=== PATIENT | female | born 1960 | race Caucasian/White ===

== ENCOUNTER 2019-07-11 10:00 | Outpatient (RCR) | payer OTHER, SELFPAY ==
[2019-04-20 12:32] VITALS: BP_SYST 80
--- NOTE | 2019-04-20 13:34 | PTOPEVAL ---
PHYSICAL THERAPY EVALUATION AND PLAN OF CARE Thank you for referring this patient to [facility]. Essence will participate in physical therapy for rehabilitation of right shoulder following rotator cuff repair 1-2x/week for 5 weeks until 6weeks post-op. Please review, sign, date and return this plan of care KAYDEN. I agree with and certify that the following plan of care is medically necessary. Referring Physician Date Attending Provider: Dr.Bruce Ollie MD Evaluation Diagnosis right rotator cuff repair Onset 04/14/2019 Subjective Information Essence is here today 1 week s/p Query Text:As Reported By Patient/ right rotator cuff repair. He Family repaired a full thickness tear and removed 2 bone spurs. Patient also reports he snipped the biceps tendon. Pain has been severe, but is easing. Pain Assessment Pain Scale Pain Scale Used Numeric (1 - 10) Self Report Pain Assessment Bilateral Shoulder(s) Reported Pain Level 4 Current Pain Intensity 4 Lowest Pain Intensity 2 Greatest Pain Intensity 9 Pain Score Pain Score 4: Self Report Scapular/ Shoulder Range of Motion Right Shoulder Flexion - Passive 105 Shoulder Abduction - Passive 80 Shoulder Lateral Rotation - Passive 45 General Upper Extremity Strength Reason Not Measured Surgery Precautions Posture Sitting Position Posture Evaluation View Anterior Scapula Posture (R) Protracted,(R) Tipped Arm Posture (R) Internally Rotated Clinical Summary Essence is 1 week s/p right rotator cuff repair. Incision site appears clean and dry without drainage or discoloring. She is experiencing normal levels of pain and discomfort that are gradually easing with time and medication. Essence is currently on precautions for PROM only of right shoulder both in therapy and at home. She was educated to use her sling at all times unless sitting and resting. If she happens to be standing without her sling, she is to let arm rest down straight. Essence has less than functional AROM and strength at this time. She
--- NOTE | 2019-05-01 17:40 | PCPTNOTE ---
Patient called & cancelled scheduled appointment this date due to car issues.
[2019-05-24 14:03] VITALS: BP_SYST 145
--- NOTE | 2019-05-24 14:47 | PTOPEVAL ---
PHYSICAL THERAPY PLAN OF CARE UPDATE AND PROGRESS REPORT Thank you for referring this patient to [facility]. Essence will be seen in physical therapy 1-2x/week for 6 weeks. Please review, sign, date and return this plan of care KAYDEN. I agree with and certify that the following plan of care is medically necessary. Referring Physician Date Re-evaluation Evaluation Information Problem Diagnosis right rotator cuff repair Onset 04/14/2019 Subjective Information Essence is here today 6 week s/p Query Text:As Reported By Patient/ right rotator cuff repair. He Family repaired a full thickness tear and removed 2 bone spurs. Patient also reports he snipped the biceps tendon. Pain has been severe, but is easing. She has participated in 6 weeks of physical therapy with PROM to right shoulder. She feels good but with described achiness and soreness in the biceps. Pain Assessment Self Report Pain Assessment Right Shoulder(s) Reported Pain Level 2 Interventions Used By Clinicians Joint Mobilization, PROM, stretching Pain Score Pain Score 2,2: Self Report Additional Pain Score Comments just really achey and tight feeling today Scapular/ Shoulder Range of Motion Right Shoulder Flexion - Passive 150 Shoulder Abduction - Passive 145 Shoulder Medial Rotation - Passive 65 Shoulder Lateral Rotation - Passive 80 General Upper Extremity Strength Reason Not Measured Surgery Precautions Gross Upper Extremity Strength Comments initiating A/A with cane and pulleys and gentle isometric exericses Palpation good tissue integrity throughou periscapular region; tender to palpation over biceps Clinical Summary Essence is 6 weeks s/p right rotator cuff repair. She is recovering from surgical interventino well with good progress in PROM and good initial A/A ROM in flexion, external rotation, and internal rotation. At this time, with physician consent, she is ready to progress to next phase of gentle strengthening and A/AROM and
--- NOTE | 2019-06-28 11:43 | PCPTNOTE ---
Patient called & cancelled scheduled appointment this date due to not feeling well and doesn't want to risk spreading anything if she has something.
--- NOTE | 2019-07-11 14:35 | PTOPEVAL ---
PHYSICAL THERAPY DISCHARGE Thank you for referring Essence Vidales to [facility]. Please review, sign, date and return this plan of care KAYDEN. I agree with and certify that the following plan of care is medically necessary. Referring Physician Date Discharge Diagnosis right rotator cuff repair Onset 04/14/2019 Subjective Information Essence started back to work Query Text:As Reported By Patient/ several weeks ago 1 day/week. Family Notes that the arm was tired and sore, but not painful. Still using ice if very sore but no pain medication expect Tylenol as needed. She is doing light yard work (picking up sticks). Pain Assessment Timing of Pain Assessment Timing of Pain Assessment Pre-Treatment Pain Scale Pain Scale Used Numeric (1 - 10) Self Report Pain Assessment Right Shoulder(s) Reported Pain Level 1 Pain Description Soreness Pain Score Pain Score 1: Self Report Upper Extremity Range of Motion Scapular/ Shoulder Range of Motion Right Shoulder Flexion - Active 150 Shoulder Abduction - Active 145 Shoulder Medial Rotation - Active T10 Query Text:Reach Behind the Back Shoulder Lateral Rotation - Active 80 Upper Extremity Muscle Strength Testing Scapular/Shoulder Right Shoulder Flexion Strength 3+ Fair + Shoulder Abduction Strength 4- Good - Shoulder Medial Rotation Strength 4+ Good + Shoulder Lateral Rotation Strength 4+ Good + PT Clinical Summary Essence is a 59 yo female 12 weeks s/p right rotator cuff repair. She has returned to work with a 5lb lifting restriction. She is working one day a week at this time. Essence's strength is progressing and her ROM is symmetrical with contralateral side. She is eager to continue home exercise program and due to co-pay and her return to work she would like to use her HEP to assist in building her strength. She will be discharged from PT at this time.
== END 2019-07-12 09:18 | disposition home or self-care (01) ==
LOC: ANHPT 10:00
PROVIDERS: PCP Family Medicine
DX: Z48.89 Encounter for other specified surgical aftercare (principal); M25.511 Pain in right shoulder
CPT/HCPCS: 97110; 97140; 97161

== ENCOUNTER 2019-11-29 15:41 | Outpatient (CLI) | payer OTHER, SELFPAY ==
--- NOTE | ~2019-11-29 | MM_ITS ---
EXAMINATION: MM screening mary jane BI w bart HISTORY: Screening TECHNIQUE: Craniocaudal and mediolateral oblique 3-D tomosynthesis images were obtained and synthetic 2-D images were generated. CAD analysis was submitted and interpreted. COMPARISON: Comparison to multiple prior studies sequentially, with oldest reviewed study dated 11/23. BREAST PARENCHYMAL COMPOSITION: There are scattered areas of fibroglandular density. FINDINGS: There is no evidence of suspicious mass, calcification, or architectural distortion to sugg est malignancy in either breast. There has been no suspicious interval change. IMPRESSION: 1. No mammographic evidence of malignancy. 2. Recommend routine screening mammography in one year. BI-RADS Category 1: Negative Reviewed, dictated and finalized at location A.
== END 2019-11-29 15:42 | disposition home or self-care (01) ==
LOC: ANHIMG 15:44
PROVIDERS: PCP Family Medicine; Visit Provider Family Medicine
DX: Z12.31 Encounter for screening mammogram for malignant neoplasm of breast (principal)
CPT/HCPCS: 77063; 77067

== ENCOUNTER 2021-02-24 08:29 | Outpatient (RCR) | payer BC, SELFPAY ==
[2021-02-24 08:35] VITALS: BP_SYST 170
--- NOTE | 2021-02-24 09:42 | PTOPEVAL ---
Thank you for referring Essence Vidales to [facility].? The patient is scheduled to be seen for therapy? 2 x/week for 6 weeks. Please review, sign, date and return this plan of care KAYDEN. I agree with and certify that the following plan of care is medically necessary. Referring Physician Date Referring Provider: Ramiro Levin MD Diagnosis right shoulder/elbow pain Onset 6 months Additional Evaluation Detail She had previous surgery for RTC repair 04/17. The MD was unable to repair the bicep due to amount of time since injury. Subjective Information Increased bicep pain in the Query Text:As Reported By Patient/ past 6 months. She c/o loss of Family strength of the UE. Reports increased pain with repeated lifting at work. She has increased pain with lifting and reaching motions overhead. Increased pain with sleeping on right side. She is performing HEP at home for stretching and occasional strengthening. Pain Assessment Right Arm(s) Reported Pain Level 2 Pain Description Aching,With Movement Pain Frequency Chronic,Continuous Lowest Pain Intensity 2 Greatest Pain Intensity 8 Pain Aggravating Factors Exercise/Activity,Lifting Upper Extremity Range of Motion General Upper Extremity Range of Motion Gross Upper Extremity Range of Motion right elbow ROM: WNL Comments Scapular/ Shoulder Range of Motion Right Shoulder Flexion - Active 145 Shoulder Flexion - Passive 165 Shoulder Extension - Active 50 Shoulder Abduction - Active 125 Shoulder Abduction - Passive 170 Shoulder Medial Rotation - Active 45 Shoulder Medial Rotation - Passive 60 Shoulder Medial Rotation - Active T7:Reach Behind the Back Shoulder Lateral Rotation - Active 90 Shoulder Lateral Rotation - Active C6:Reach Behind the Head Scapular/Shoulder Range of Motion Muscle Length Restriction,Pain, Limitations Soft Tissue Restriction Upper Extremity Muscle Strength Testing General Upper Extremity Strength Gross Upper Extremity Strength Comments left middle trap: 3-/5, lower trap: 2/5 technical sales representatives dynamometer 2nd level right: 55, 45, 50= avg left: 70, 56, 60= avg Scapular/Shoulder Right Scapular Retraction - Middle Trapezius 3- Fair - Scapular Retraction - Lower Trapezius 2 Poor Shoulder Flexion Strength 3 F
--- NOTE | 2021-03-25 11:50 | PCPTNOTE ---
Admitting Provider: Attending Provider: Dr. Ramiro Levin MD Patient:Essence Vidales Date of :1960 Physical Therapy Discharge Summary Patient has not returned for any further treatments since 02/24/2021, therefore she will be discharged at this time. Patient?s initial visit was on 02/24/2021 08:30 and she had a total of 1 visits. The goals have been not met due to limited visits attended. . Thank you for referring this patient to [facility]. Please review, sign, date and return this discharge summary KAYDEN. I have been updated about the patient's current status and I agree with discharge from the above service at this time. Referring Physician Date
== END 2021-03-25 15:48 | disposition home or self-care (01) ==
LOC: ANHPT 08:29
PROVIDERS: PCP Family Medicine
DX: M25.511 Pain in right shoulder (principal); M25.521 Pain in right elbow
CPT/HCPCS: 97110; 97162

== ENCOUNTER 2021-03-18 14:39 | Outpatient (CLI) | payer BC, SELFPAY ==
--- NOTE | ~2021-03-18 | MM_ITS ---
EXAMINATION: MM screening mary jane BI w bart HISTORY: Screening mammogram TECHNIQUE: Craniocaudal and mediolateral oblique 3-D tomosynthesis images were obtained and synthetic 2-D images were generated. CAD analysis was submitted and interpreted. COMPARISON: 11/29/2019, 11/23/2018 bilateral screening mammogram examinations BREAST PARENCHYMAL COMPOSITION: There are scattered areas of fibroglandular density. FINDINGS: There is no evidence of suspicious mass, calcification, or architectural distortion to sugg est malignancy in either breast. There has been no suspicious interval change. IMPRESSION: 1. No mammographic evidence of malignancy. 2. Recommend routine screening mammography in one year. BI-RADS Category 1: Negative Reviewed, dictated and finalized at location B. ERY CLERK
--- NOTE | ~2021-03-18 | DEXA_ITS ---
Bone Density Report Name: NICOLE TOURE Age: 61 Sex: Female Ethnicity: White Date of : 1960 Indication: postmenopausal; height loss; prior fracture; Referring Provider: ROD MENCHACA Study: Bone densitometry was performed. Exam Date: March 18, 2021 Accession number: [id number] Bone Density: Region BMD T-score Z-score Classification AP Spine (L1-L4) 1.066 0.2 1.8 Normal Femoral Neck (Left) 0.828 -0.2 1.2 Normal Total Hip (Left) 1.026 0.7 1.8 Normal Total Hip Bilateral Avg 1.047 0.8 1.9 Normal Femoral Neck (Right) 0.878 0.3 1.7 Normal Total Hip (Right) 1.066 1.0 2.1 Normal World Health Organization criteria for BMD impression classify patients as: Normal (T-score at or above -1.0), Osteopenia (T-score between -1.0 and -2.5), or Osteoporosis (T-score at or below -2.5). 10-year Fracture Risk: FRAX not reported because: All T-scores for Spine Total, Hip Total, Femoral Neck at or above -1.0 Clinical Information Provided by Patient: Has had a low trauma fracture Has used the following medications: Vitamin D, Calcium Patient maximum height was 64 Menopause Age: 48 No regular weight bearing exercise Drinks caffeinated beverages Onset of menses at age 12 Number of children 0 Impression: The patient has normal bone mass. The patient has risk factors, including: previous fracture. Discussion: BONE DENSITY IS ABOVE THE MINIMUM DESIRABLE LEVEL AT ALL SKELETAL SITES TESTED. This patient?s bone mineral density is above the minimum desirable level (T-score -1.0 or better) at all sites measured. The patient should follow a healthful lifestyle (good nutrition with adequate calcium and vitamin D, and appropriate weight-bearing exercise). Follow-Up: Consider repeating this study in 5 years or sooner if there is some new clinical indication. Reported by: [facility] on 03/18/2021 3:14:00 PM. Reviewed, dictated and finalized at location AKorin ABARCA
== END 2021-03-18 14:40 | disposition home or self-care (01) ==
PROVIDERS: PCP Family Medicine; Visit Provider Family Medicine
DX: Z12.31 Encounter for screening mammogram for malignant neoplasm of breast (principal); Z78.0 Asymptomatic menopausal state
CPT/HCPCS: 77063; 77067; 77080

== ENCOUNTER 2021-03-28 19:30 | Emergency (ER) | payer BC, SELFPAY ==
--- NOTE | ~2021-03-28 | CT_ITS ---
EXAMINATION: CT thoracic spine wo con EXAM DATE: 03/28/2021 21:06 INDICATION: fall, mid back pain . TECHNIQUE: Spiral CT thoracic spine wo con was performed thoracic spine Axial, coronal and sagittal images were reviewed. The dose-length product (DLP) for this examination was 304.35 mGy-cm. The exp osure was tailored according to patient size (auto mA exposure control), and iterative reconstruction (ASIR) was used as additional dose reduction technique. There is no prior study for comparison. FINDINGS: There are no acute fractures identified. Moderate mid and lower thoracic disc disease. The vertebral bodies are aligned in the AP dimension. Mild to moderate thoracic facet arthropathy. Parasp inal soft tissue is unremarkable. IMPRESSION: 1. No acute thoracic findings. 2. Moderate disc disease. Reviewed, dictated and finalized at location A. ORATE RECRUITER
--- NOTE | ~2021-03-28 | CT_ITS ---
EXAMINATION: CT cervical spine wo con EXAM DATE: 03/28/2021 21:05 INDICATION: Fall, neck pain. TECHNIQUE: Spiral CT of the cervical spine was performed without contrast. Axial images were reviewe d. Coronal and sagittal reformatted images cervical spine were also reviewed. The dose-length produc t (DLP) for this examination was 173.27 mGy-cm. The exposure was tailored according to patient size (auto mA exposure control), and iterative reconstruction (ASIR) was used as additional dose reduction technique. There is no prior study for comparison. FINDINGS: There is no evidence of acute cervical fracture. The odontoid process is intact. Pre-dens space is normal. Prevertebral soft tissue is normal. There are no soft tissue abnormalities identi fied. There is no disc space widening or traumatic vertebral body subluxation suspected. Mild cervi yadira disc disease, moderate arthropathy. A detailed level by level evaluation of spondylosis can be a dded as addendum if requested. IMPRESSION: 1. No acute cervical fracture. 2. Mild to moderate cervical spondylosis. Reviewed, dictated and finalized at location A. PPER OPERATOR
--- NOTE | ~2021-03-28 | XR_ITS ---
EXAMINATION: XR knee LT min 4V EXAM DATE: 03/28/2021 21:07 INDICATION: left knee cap pain post fall tonight, pain w/ wb, hx TKA . TECHNIQUE: Left knee frontal, crosstable lateral, orthogonal oblique projections for interpretation. There is no prior study for comparison. FINDINGS: No evidence osteochondral defect or joint body in the left knee joint. There is left knee replacement hardware in expected position. There is some edema anterior to the patella, patellar tend on and in Hoffa's fat pad. There are no acute fractures identified. No sizable joint effusion. IMPRESSION: 1. Intact left knee arthroplasty. 2. Anterior soft tissue swelling. Reviewed, dictated and finalized at location A. CURE WORKER
[2021-03-28 19:56] VITALS: BP 140/86; PULSE 102; RESP 18; TEMP 37.1; O2SAT 98
--- NOTE | 2021-03-28 20:48 | ED.LOWEXIN ---
HPI - Extremity Injury (Lower) General Chief Complaint: Extremity Injury, Lower <Margie Nava PA-C - Last Filed: 03/28/21 21:26> Stated Complaint: L KNEE PAIN S/P FALL <BLANCA Schreiber Last Filed: 03/28/21 21:26> Time Seen by Provider: 03/28/21 20:37 <BLANCA Schreiber Last Filed: 03/28/21 21:26> Source: patient <BLANCA Schreiber Last Filed: 03/28/21 21:26> Mode of arrival: ambulatory <BLANCA Schreiber Last Filed: 03/28/21 21:26> Limitations: no limitations <Margie Nava PA-C - Last Filed: 03/28/21 21:26> History of Present Illness HPI Narrative: This is a 61 year old female that presents to the ER after a ground level fall today with left knee pain and back pain. Reports she tripped while walking up the steps. Reports landing on her left knee and hitting her chin on the steps. Denies loss of consciousness, vision changes, vomiting, decreased range of motion, numbness or weakness. <BLANCA Schreiber Last Filed: 03/28/21 21:26> Related Data Home Medications: Home Medications Medication Instructions Recorded Confirmed diclofenac sodium 75 mg 75 mg PO BID 04/22/20 09/23/20 tablet,delayed release <BLANCA Schreiber Last Filed: 03/28/21 21:26> Allergies/Adverse Reactions: Allergies Allergy/AdvReac Type Severity Reaction Status Date / Time sulfamethizole Allergy Intermediate hives Verified 03/28/21 20:03 sulfamethoxazole Allergy Intermediate HIVES Verified 03/28/21 20:03 trimethoprim Allergy Intermediate hives Verified 03/28/21 20:03 pneumococcal vaccine Allergy Unknown Dyspnea / Verified 03/28/21 20:03 SOB <BLANCA Schreiber Last Filed: 03/28/21 21:26> Review of Systems Review of Systems: CONSTITUTIONAL: Denies fever EYES: Denies visual changes GASTROINTESTINAL: Denies vomiting MUSCULOSKELETAL: Reports back pain, joint pain, and myalgia. NEUROLOGIC: Denies headache, numbness, or weakness. <Margie Nava PA-C - Last Filed: 03/28/21 21:26> All systems reviewed & are unremarkable except as noted in HPI and below <Margie Nava PA-C - Last Filed: 03/28/21 21:26> PMFSH Past Medical History Medical History: Medical History Anxiety COPD (chronic obstructive pulmonary disease) Depression HTN (hypertension) Normal colonoscopy (~2018) Overactive bladder Right shoulder pain <Margie Nava PA-C - Last Filed: 03/28/21 21:26> Surgical History Surgical History: Surgical History H/O rotator cuff surgery 2020 Right shoulder History of left knee replacement (~2018) Left knee <Margie Nava PA-C - Last Filed: 03/28/21 21:26> Family History Family History: Family History Father Family history of aortic aneurysm Hypertension Mother Family history of heart disease in male family member before age 55 Diabetes mellitus Family history of cardiovascular disease Other Family history of malignant neoplasm <Margie aNva PA-C - Last Filed: 03/28/21 21:26> Social History Social History: Social History Second hand tobacco smoke exposure: No Alcohol intake: current Drinks per week: 21 Substance use: never Substance use type: does not use Gender identity (if verbalized by the patient): Female <BLANCA Schreiber Last Filed: 03/28/21 21:26> Exam Narrative: GENERAL: Well-appearing, well-nourished, and in no acute distress. HEAD: Normocephalic, atraumatic. EYES: PERRLA and EOMI. ENT: Nares clear, no rhinorrhea or epistaxis. Mucous membranes moist. Oropharynx without tonsillar hypertrophy exudate or other lesions. Bilateral TMs pearly acosta non-bulging NECK: Supple. No adenopathy or masses. Tender to palpation of midlin
[2021-03-28 22:01] VITALS: BP 127/91; PULSE 91; RESP 16; O2SAT 98
== END 2021-03-28 22:02 | disposition home or self-care (01) ==
PROVIDERS: Emergency Provider Emergency Medicine; PCP Family Medicine
DX: S80.02XA Contusion of left knee, initial encounter (principal); S29.012A Strain of muscle and tendon of back wall of thorax, initial encounter; I10 Essential (primary) hypertension; J44.9 Chronic obstructive pulmonary disease, unspecified; W01.0XXA Fall on same level from slipping, tripping and stumbling without subsequent striking against object, initial encounter
CPT/HCPCS: 72125; 72128; 73564; 99284

== ENCOUNTER 2021-09-16 00:30 | Day surgery (SDC) | payer BC, SELFPAY ==
[2021-09-01 08:47] VITALS: BMI 23.1
[2021-09-16 09:27] VITALS: BP 136/87; PULSE 63; RESP 20; TEMP 36.1; O2SAT 100; BMI 22.5
--- NOTE | 2021-09-16 09:29 | WPDANESEPPF ---
Anes - Initial Pre Proc Eval Procedure: Operation Date: 09/16/21 11:00 Proposed Procedures p Esophagogastroduodenoscopy - Niranjan Estes MD Date/Time: 09/16/21 09:29 Surgeon: Niranjan Estes MD Pre Op Diagnosis: dysphagia, weight loss Patient Data Age: 61 Gender: F Height: 1.63 m Weight: 59.6 kg Last Vital Signs Temp 36.1 C L 09/16/21 09:27 Pulse 63 09/16/21 09:27 Resp 20 09/16/21 09:27 BP 136/87 09/16/21 09:27 Pulse Ox 100 09/16/21 09:27 O2 Del Method Room Air 09/16/21 09:27 Allergies Allergy/AdvReac Type Severity Reaction Status Date / Time sulfamethizole Allergy Intermediate hives Verified 09/16/21 09:27 sulfamethoxazole Allergy Intermediate HIVES Verified 09/16/21 09:27 trimethoprim Allergy Intermediate hives Verified 09/16/21 09:27 pneumococcal vaccine Allergy Unknown Dyspnea / Verified 09/16/21 09:27 SOB Home Medications Medication Instructions Recorded Confirmed Type tramadol 50 mg tablet 50 mg PO Q6-8H PRN pain #30 tabs 08/24/19 09/01/21 Rx oxybutynin chloride 10 mg 10 mg PO DAILY #90 tabs 12/29/20 09/01/21 Rx tablet,extended release 24 hr losartan 100 1 tablet PO DAILY #90 tabs 03/31/21 09/01/21 Rx mg-hydrochlorothiazide 25 mg tablet bupropion HCl 150 mg 24 hr tablet, 150 mg PO QAM #90 tabs 04/10/21 09/01/21 Rx extended release (Wellbutrin XL) trazodone 50 mg tablet 75 mg PO .COMPLEX #135 tabs 04/24/21 09/01/21 Rx diclofenac sodium 100 mg 100 mg PO DAILY 06/23/21 09/01/21 History tablet,extended release 24 hr cholecalciferol (vitamin D3) 10 10 mcg PO DAILY 08/21/21 09/01/21 History mcg (400 unit) capsule docusate sodium 50 mg capsule 50 mg PO DAILY 08/21/21 09/01/21 History (Stool Softener) omega 9-isv-jpm-fish oil 60 mg-90 1 cap PO DAILY 08/21/21 09/01/21 History mg-500 mg capsule (Fish Oil) polyethylene glycol 3350 17 17 g PO DAILY 08/21/21 09/01/21 History gram/dose oral powder (ClearLax) psyllium husk 0.52 gram capsule 0.52 g PO DAILY 08/21/21 09/01/21 History (Daily Fiber) linaclotide 72 mcg capsule 72 mcg PO DAILY #90 caps 09/01/21 Rx (Linzess) Patient hx anesthesia problems: none Family hx anesthesia problems: none Results Review: All pre-operative results and documents have been reviewed as part of the pre-operative evaluation. [facility] Past Medical History Medical History Anxiety Chronic idiopathic constipation COPD (chronic obstructive pulmonary disease) Depression Esophageal abnormality HTN (hypertension) Irritable bowel syndrome with constipation Normal colonoscopy (~2018) Overactive bladder Right shoulder pain Surgical History Surgical History H/O rotator cuff surgery 2020 Right shoulder History of left knee replacement (~2018) Left knee Family History Family History Father Family history of aortic aneurysm Hypertension Mother Family history of heart disease in male family member before age 55 Diabetes mellitus Family history of cardiovascular disease Other Family history of malignant neoplasm Social History Social History Smoking status: Never smoker Second hand tobacco smoke exposure: No Alcohol intake: current Drinks per week: 4 Substance use: never Substance use type: does not use Living arrangements: with family Gender identity (if verbalized by the patient): Female Spiritual care concerns: No Anes - Eval Final PreProcedure Day of Procedure 09/16/21 09:29 Patient weight: normal Heart: regular rate and rhythm Lungs: clear to auscultation Airway: Mallampati scale class II Neurological: alert and oriented Last oral intake: >/= 8 hours ASA classification: III Emergent: no Anesthetic plan: proceed Anesthesia type
--- NOTE | 2021-09-16 09:42 | PM.HPGS ---
History of Present Illness History of Present Illness Consent: Risks, benefits, and alternatives have been discussed and questions answered. Patient agrees to proceed with procedure. Chief complaint: dysphagia, weight loss Narrative: Essence Vidales is a 61 year old female with dysphagia to solids for last few months, using pepcid prn, never had egd Review of Systems Constitutional: Constitutional: Denies headache(s) and Denies weakness Eyes: Eyes: Denies blurry vision ENT: Reports Normal hearing present, Denies headache(s) and Denies neck pain Cardiovascular: Cardiovascular: Denies chest pain and Denies dyspnea Respiratory: Respiratory: Denies dyspnea Gastrointestinal: Gastrointestinal: Reports no additional gastrointestinal complaints Genitourinary: Genitourinary: Denies dysuria Musculoskeletal: Musculoskeletal: Denies neck pain Integumentary/Breasts: Skin/Breast: Denies dry skin Neurologic: Reports Normal hearing present, Denies headache(s) and Denies weakness Psychiatric: Psychiatric: Denies anxiety Endocrine: Endocrine: Denies change in body appearance Hematologic/Lymphatic: Hematologic/Lymphatic: Denies easy bleeding Allergic/Immunologic: Allergic/Immunologic: Denies urticaria PMFSH Past Medical History Medical History (Updated 09/16/21 @ 09:43 by Niranjan Estes MD) Anxiety Chronic idiopathic constipation COPD (chronic obstructive pulmonary disease) Depression Dysphagia Esophageal abnormality HTN (hypertension) Irritable bowel syndrome with constipation Normal colonoscopy (~2018) Overactive bladder Right shoulder pain Surgical History Surgical History H/O rotator cuff surgery 2020 Right shoulder History of left knee replacement (~2018) Left knee Family History Family History Father Family history of aortic aneurysm Hypertension Mother Family history of heart disease in male family member before age 55 Diabetes mellitus Family history of cardiovascular disease Other Family history of malignant neoplasm Social History Social History Smoking status: Never smoker Second hand tobacco smoke exposure: No Alcohol intake: current Drinks per week: 4 Substance use: never Substance use type: does not use Living arrangements: with family Gender identity (if verbalized by the patient): Female Spiritual care concerns: No Meds Home Medications and Allergies Home Medications Medication Instructions Recorded Confirmed Type tramadol 50 mg tablet 50 mg PO Q6-8H PRN pain #30 tabs 08/24/19 09/16/21 Rx oxybutynin chloride 10 mg 10 mg PO DAILY #90 tabs 12/29/20 09/16/21 Rx tablet,extended release 24 hr losartan 100 1 tablet PO DAILY #90 tabs 03/31/21 09/16/21 Rx mg-hydrochlorothiazide 25 mg tablet bupropion HCl 150 mg 24 hr tablet, 150 mg PO QAM #90 tabs 04/10/21 09/16/21 Rx extended release (Wellbutrin XL) trazodone 50 mg tablet 75 mg PO .COMPLEX #135 tabs 04/24/21 09/16/21 Rx diclofenac sodium 100 mg 100 mg PO DAILY 06/23/21 09/16/21 History tablet,extended release 24 hr cholecalciferol (vitamin D3) 10 10 mcg PO DAILY 08/21/21 09/16/21 History mcg (400 unit) capsule docusate sodium 50 mg capsule 50 mg PO DAILY 08/21/21 09/16/21 History (Stool Softener) omega 1-gna-icn-fish oil 60 mg-90 1 cap PO DAILY 08/21/21 09/16/21 History mg-500 mg capsule (Fish Oil) polyethylene glycol 3350 17 17 g PO DAILY 08/21/21 09/16/21 History gram/dose oral powder (ClearLax) psyllium husk 0.52 gram capsule 0.52 g PO DAILY 08/21/21 09/16/21 History (Daily Fiber) linaclotide 72 mcg capsule 72 mcg PO DAILY PRN Constipation 09/16/21 09/16/21 History (Linzess) Allergies Allergy/AdvReac Type Severity Reaction Status Date / Time sulfamethizole Allergy Intermediate hives Verifi
[2021-09-16] MEDS: LACTATED RINGERS 1,000 ML 150 ML IV CONT (09:43)
[2021-09-16 10:03] VITALS: BP 101/72; PULSE 66; RESP 20; O2SAT 100
[2021-09-16 10:13] VITALS: BP 113/86; PULSE 57; RESP 18; O2SAT 100
[2021-09-16 10:23] VITALS: BP 116/82; PULSE 53; RESP 17; O2SAT 100
== END 2021-09-16 10:28 | disposition home or self-care (01) ==
PROVIDERS: PCP Family Medicine; Visit Provider Internal Medicine Gastroenterology
PROC: 0DJ08ZZ Inspection of Upper Intestinal Tract, Via Natural or Artificial Opening Endoscopic (ICD-10-PCS; CPT 43235; principal; 2021-09-16 11:00)
DX: R13.10 Dysphagia, unspecified (principal); K44.9 Diaphragmatic hernia without obstruction or gangrene; K29.50 Unspecified chronic gastritis without bleeding; I10 Essential (primary) hypertension; K58.1 Irritable bowel syndrome with constipation; J44.9 Chronic obstructive pulmonary disease, unspecified; F41.9 Anxiety disorder, unspecified; F32.A Depression, unspecified; N32.81 Overactive bladder
CPT/HCPCS: 43239; 43248; 88305; J2704; J7120

== ENCOUNTER 2021-11-06 08:54 | Outpatient (CLI) | payer BC, SELFPAY ==
--- NOTE | ~2021-11-06 | MMUS_ITS ---
EXAMINATION: MM diagnostic mary jane LT w bart, US breast LT limited HISTORY: Palpable lump in the upper outer quadrant of the left breast TECHNIQUE: Craniocaudal, mediolateral, and mediolateral oblique 3-D tomosynthesis images of the left breast were performed and synthetic 2-D images were generated. CAD analysis was submitted and interpr eted. High resolution limited left breast ultrasound was performed. COMPARISON: 03/18/2021, 11/29/2019, 11/15/2018 BREAST PARENCHYMAL COMPOSITION: There are scattered areas of fibroglandular density. FINDINGS: MAMMOGRAPHIC FINDINGS: There is a questionable 5 mm obscured mass in the middle third of the upper outer quadrant of the [place] ast at the 3:00 location 4 cm from the nipple corresponding to the palpable abnormality of concern. ULTRASOUND: There is a 10 mm x 9 mm irregular, not parallel, hypoechoic mass with internal vascularity and no pos terior features at the 2:00 location 5 cm from the nipple at the area of the palpable abnormality. IMPRESSION: 1. Suspicious left breast mass. 2. Ultrasound-guided biopsy is recommended. BI-RADS category 4, suspicious findings. Reviewed, dictated and finalized at location A. IMPRESSION: 1. Suspicious left breast mass. 2. Ultrasound-guided biopsy is recommended. BI-RADS category 4, suspicious findings.
== END 2021-11-06 08:55 ==
LOC: MICIMG 08:55
PROVIDERS: PCP Family Medicine; Visit Provider Family Medicine
DX: N63.20 Unspecified lump in the left breast, unspecified quadrant (principal); R92.8 Other abnormal and inconclusive findings on diagnostic imaging of breast
CPT/HCPCS: 76642; 77061; 77065; G0279